=== PATIENT | male | born 2000 | race Caucasian/White ===

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

== ENCOUNTER 2021-09-26 11:19 | Inpatient (IN) | payer OTHER ==
[2021-09-26] MEDS ORDERED: ACETAMINOPHEN 1000 MG/100 ML BAG IVPB ONE (12:32)
[2021-09-26] MEDS ORDERED: ACETAMINOPHEN INJECTION 100 ML IVPB ONE (13:17)
[2021-09-26 14:27] LABS: BASO % 0.7 % (0-2.0); EOS % 5.4 % (0-4.5); HEMATOCRIT 44.4 % (35.4-49); HEMOGLOBIN 14.7 GM/dL (11.7-16.9); LYMPH % 29.6 % (8-40); MCH 27.3 pg (25.7-33.7); MCHC 33.1 g/dl (32.0-35.9); MEAN CELL VOLUME 82.6 fl (80-96); MEAN PLT VOLUME 8.6 fl (7.5-11.1); MONO % 8.1 % (3.8-10.2); NEUT % 56.2 % (42.8-82.8); PLATELET COUNT 249 10^3/uL (134-434); RBC 5.38 M/mm3 (4.00-5.60); RDW 13.7 % (11.9-15.9); WHITE BLOOD COUNT 7.7 K/mm3 (4.0-10.0)
[2021-09-26 14:29] LABS: ALBUMIN 4.2 g/dl (3.4-5.0); BLOOD UREA NITROGEN 14.3 mg/dL (7-18); CALCIUM 9.3 mg/dL (8.5-10.1)
[2021-09-26 14:30] LABS: MAGNESIUM 2.3 mg/dL (1.8-2.4)
[2021-09-26 14:33] LABS: CREATININE 0.9 mg/dL (0.55-1.3)
[2021-09-26 14:34] LABS: BILIRUBIN,TOTAL 0.6 mg/dL (0.2-1); TOT PROT 7.2 g/dl (6.4-8.2)
[2021-09-26 14:36] LABS: INR 1.1 (0.83-1.09); PROTHROMBIN TIME (PATIENT) 12.7 SEC (9.7-13.0)
[2021-09-26 14:39] LABS: ACTIVATED PTT 33.9 SECONDS (25.2-36.5)
[2021-09-26] MEDS ORDERED: ACETAMINOPHEN 325 MG TABLET (FP) PO PRN (16:32)
[2021-09-26] MEDS ORDERED: oxyCODONE HCL 5 MG TABLET PO PRN (19:21)
[2021-09-27] MEDS ORDERED: ALBUTEROL SO4 HFA INHALER IH PRN (07:14)
[2021-09-27 08:13] LABS: HEMATOCRIT 45.4 % (35.4-49); MCH 27.2 pg (25.7-33.7); MEAN CELL VOLUME 82.5 fl (80-96); MEAN PLT VOLUME 8.1 fl (7.5-11.1); PLATELET COUNT 218 10^3/uL (134-434); RDW 13.6 % (11.9-15.9)
[2021-09-27 08:31] LABS: CALCIUM 9.5 mg/dL (8.5-10.1)
[2021-09-27 08:32] LABS: BLOOD UREA NITROGEN 11.7 mg/dL (7-18)
[2021-09-27] MEDS ORDERED: FAMOTIDINE 20 MG TABLET ONE (09:29)
[2021-09-27] MEDS: FAMOTIDINE 20 MG TABLET PO SCH (09:33)
[2021-09-27 12:57] LABS: ANISOCYTOSIS 0; MACROCYTOSIS 0
[2021-09-27] MEDS ORDERED: MELATONIN 5 MG TABLETS PO PRN (14:57)
[2021-09-27] MEDS ORDERED: ONDANSETRON 4 MG/2 ML VIAL IVPUSH PRN (16:32)
[2021-09-27 17:13] VITALS: BMI 21.6
[2021-09-28] MEDS: FAMOTIDINE 20 MG TABLET PO SCH (09:48)
[2021-09-29] MEDS: FAMOTIDINE 20 MG TABLET PO SCH (09:14)
[2021-09-29 09:57] LABS: HEMATOCRIT 45.5 % (35.4-49); HEMOGLOBIN 15.5 GM/dL (11.7-16.9); MCH 27.8 pg (25.7-33.7); MCHC 34.1 g/dl (32.0-35.9); MEAN CELL VOLUME 81.6 fl (80-96); MEAN PLT VOLUME 8.2 fl (7.5-11.1); PLATELET COUNT 243 10^3/uL (134-434); RBC 5.58 M/mm3 (4.00-5.60); RDW 13.5 % (11.9-15.9); WHITE BLOOD COUNT 10.4 K/mm3 (4.0-10.0)
[2021-09-29 10:22] LABS: CALCIUM 9.6 mg/dL (8.5-10.1)
[2021-09-29 10:23] LABS: BLOOD UREA NITROGEN 14.6 mg/dL (7-18)
[2021-09-29 10:25] LABS: CREATININE 1.1 mg/dL (0.55-1.3)
[2021-09-30 08:58] LABS: HEMATOCRIT 45.4 % (35.4-49); HEMOGLOBIN 15.6 GM/dL (11.7-16.9); MCH 27.9 pg (25.7-33.7); MCHC 34.5 g/dl (32.0-35.9); MEAN CELL VOLUME 81.1 fl (80-96); MEAN PLT VOLUME 8.6 fl (7.5-11.1); PLATELET COUNT 251 10^3/uL (134-434); RDW 12.9 % (11.9-15.9); WHITE BLOOD COUNT 10.7 K/mm3 (4.0-10.0)
[2021-09-30 09:20] LABS: CALCIUM 9.7 mg/dL (8.5-10.1)
[2021-09-30 09:24] LABS: CREATININE 1.1 mg/dL (0.55-1.3)
[2021-09-30] MEDS: FAMOTIDINE 20 MG TABLET PO SCH (09:26)
[2021-10-01] MEDS ORDERED: LORazepam 2 MG/ML SDV VIAL IVPUSH ONE ×2 (02:37)
[2021-10-01 09:07] LABS: HEMATOCRIT 44.9 % (35.4-49); HEMOGLOBIN 15.3 GM/dL (11.7-16.9); INR 1.28 (0.83-1.09); MCH 27.7 pg (25.7-33.7); MCHC 34.1 g/dl (32.0-35.9); MEAN CELL VOLUME 81.1 fl (80-96); MEAN PLT VOLUME 8.1 fl (7.5-11.1); PLATELET COUNT 259 10^3/uL (134-434); PROTHROMBIN TIME (PATIENT) 14.7 SEC (9.7-13.0); RBC 5.54 M/mm3 (4.00-5.60)
[2021-10-01 09:10] LABS: ACTIVATED PTT 36.4 SECONDS (25.2-36.5)
[2021-10-01 09:32] LABS: BLOOD UREA NITROGEN 18.5 mg/dL (7-18); CALCIUM 9.5 mg/dL (8.5-10.1)
[2021-10-01] MEDS ORDERED: PROPOFOL 20 ML ONE ×2 (09:46)
[2021-10-01] MEDS ORDERED: ROCURONIUM BROMIDE 50 MG/5 ML SYRINGE ONE ×2 (09:46→12:10)
[2021-10-01] MEDS ORDERED: MIDAZOLAM HCL 2 MG/2 ML SINGLE DOSE VIAL ONE ×2 (09:46)
[2021-10-01] MEDS: FAMOTIDINE 20 MG TABLET PO SCH (10:23)
[2021-10-01] MEDS ORDERED: BUPIVACAINE HCL/PF 0.25% (2.5MG/ML) 10 ML VIAL ONE (11:04)
[2021-10-01] MEDS ORDERED: ceFAZolin SODIUM 1 GM VIAL ONE (12:02)
[2021-10-01] MEDS ORDERED: ceFAZolin SODIUM 1 GM VIAL IVPB ONE (12:02)
[2021-10-01] MEDS ORDERED: BUPIVACAINE HCL/PF 0.25% (2.5MG/ML) 10 ML VIAL IJ ONE (12:03)
[2021-10-01] MEDS ORDERED: ONDANSETRON 4 MG/2 ML VIAL ONE (12:05)
[2021-10-01] MEDS ORDERED: DEXAMETHASONE SOD PHOSPHATE 4 MG/1 ML VIAL ONE (12:05)
[2021-10-01] MEDS ORDERED: NEOSTIGMINE METHYLSULFATE 0.5 MG/1 ML - 10 ML MDV ONE ×2 (12:41→13:14)
[2021-10-01] MEDS ORDERED: GLYCOPYRROLATE 0.2 MG/1 ML VIAL ONE ×2 (13:03→13:15)
[2021-10-01] MEDS ORDERED: ONDANSETRON 4 MG/2 ML VIAL IVPUSH PRN ×3 (13:22→13:53)
[2021-10-01] MEDS ORDERED: ALBUTEROL SO4 HFA INHALER IH PRN (13:22)
[2021-10-01] MEDS ORDERED: FENTANYL CITRATE/PF 50 MCG/ML VIAL ONE ×2 (13:46→14:11)
[2021-10-01] MEDS ORDERED: ACETAMINOPHEN INJECTION 100 ML IVPB ONE (13:49)
[2021-10-01] MEDS ORDERED: ACETAMINOPHEN 1000 MG/100 ML BAG IVPB ONE (13:52)
[2021-10-01] MEDS ORDERED: HYDROmorphone *PCA* 10MG/50ML DISP.SYRIN ONE (14:11)
[2021-10-01] MEDS ORDERED: LACTATED RINGERS SOLUTION 1,000 ML/1,000 ML INFUS.BAG IV SCH (16:30)
[2021-10-01] MEDS: ACETAMINOPHEN 1000 MG/100 ML BAG IVPB SCH ×2 (19:20→20:15)
[2021-10-01] MEDS: HYDROmorphone *PCA* 10MG/50ML DISP.SYRIN PCA SCH (19:20)
[2021-10-01] MEDS: MUPIROCIN 2% TOPICAL OINTMENT FOR DECOLONIZATION NS SCH (21:18)
[2021-10-01] MEDS: CHLORHEXIDINE GLUCONATE 4% CLEANSER FOR DECOLONIZATION TP SCH (21:19)
[2021-10-02] MEDS: ACETAMINOPHEN 1000 MG/100 ML BAG IVPB SCH ×2 (03:22→06:16)
[2021-10-02 07:43] LABS: BASO % 0.2 % (0-2.0); EOS % 1.3 % (0-4.5); HEMOGLOBIN 13.9 GM/dL (11.7-16.9); LYMPH % 6.6 % (8-40); MCH 27.1 pg (25.7-33.7); MCHC 33.1 g/dl (32.0-35.9); MEAN PLT VOLUME 8.6 fl (7.5-11.1); MONO % 12.1 % (3.8-10.2); NEUT % 79.8 % (42.8-82.8); PLATELET COUNT 235 10^3/uL (134-434); RBC 5.12 M/mm3 (4.00-5.60); RDW 13.3 % (11.9-15.9); WHITE BLOOD COUNT 14.3 K/mm3 (4.0-10.0)
[2021-10-02 08:16] LABS: BLOOD UREA NITROGEN 14.1 mg/dL (7-18)
[2021-10-02 08:19] LABS: CREATININE 0.9 mg/dL (0.55-1.3)
[2021-10-02] MEDS: FAMOTIDINE 40 MG TABLET PO SCH (09:24)
[2021-10-02] MEDS: HEPARIN NA (PORCINE) 5,000 UNITS/ML 1ML VIAL SQ SCH ×2 (09:24→21:51)
[2021-10-02] MEDS: MUPIROCIN 2% TOPICAL OINTMENT FOR DECOLONIZATION NS SCH ×2 (09:24→21:52)
[2021-10-02] MEDS: HYDROmorphone *PCA* 10MG/50ML DISP.SYRIN PCA SCH (14:36)
[2021-10-02] MEDS: CHLORHEXIDINE GLUCONATE 4% CLEANSER FOR DECOLONIZATION TP SCH (21:52)
[2021-10-02] MEDS: MELATONIN 5 MG TABLETS PO PRN (21:52)
[2021-10-03 07:39] LABS: HEMATOCRIT 41.5 % (35.4-49); HEMOGLOBIN 13.8 GM/dL (11.7-16.9); MCH 27.4 pg (25.7-33.7); MCHC 33.2 g/dl (32.0-35.9); MEAN CELL VOLUME 82.7 fl (80-96); MEAN PLT VOLUME 8.7 fl (7.5-11.1); PLATELET COUNT 212 10^3/uL (134-434); RBC 5.02 M/mm3 (4.00-5.60); RDW 13.2 % (11.9-15.9)
[2021-10-03 07:56] LABS: BLOOD UREA NITROGEN 8.5 mg/dL (7-18); CALCIUM 9.5 mg/dL (8.5-10.1); MAGNESIUM 1.7 mg/dL (1.8-2.4)
[2021-10-03 07:59] LABS: CREATININE 0.9 mg/dL (0.55-1.3)
[2021-10-03 08:00] LABS: PHOSPHOROUS 2.7 mg/dL (2.5-4.9)
[2021-10-03] MEDS: FAMOTIDINE 40 MG TABLET PO SCH (10:01)
[2021-10-03] MEDS: HEPARIN NA (PORCINE) 5,000 UNITS/ML 1ML VIAL SQ SCH ×2 (10:01→21:19)
[2021-10-03] MEDS: ACETAMINOPHEN 325 MG TABLET (FP) PO PRN ×2 (13:18→21:41)
[2021-10-03] MEDS: oxyCODONE HCL 5 MG TABLET PO PRN ×2 (13:19→21:42)
[2021-10-03] MEDS: GABAPENTIN 300 MG CAPSULE PO SCH ×2 (13:23→21:19)
[2021-10-03] MEDS: MUPIROCIN 2% TOPICAL OINTMENT FOR DECOLONIZATION NS SCH ×2 (13:46→21:20)
[2021-10-03] MEDS: MELATONIN 5 MG TABLETS PO PRN (21:20)
[2021-10-03] MEDS: CHLORHEXIDINE GLUCONATE 4% CLEANSER FOR DECOLONIZATION TP SCH (21:20)
[2021-10-04] MEDS: GABAPENTIN 300 MG CAPSULE PO SCH ×2 (05:10→14:32)
[2021-10-04] MEDS: oxyCODONE HCL 5 MG TABLET PO PRN ×2 (05:58→12:31)
[2021-10-04] MEDS ORDERED: MAGNESIUM OXIDE 400 MG TABLET (FP) PO ONE (07:21)
[2021-10-04 08:03] LABS: BASO % 0.3 % (0-2.0); EOS % 4.3 % (0-4.5); HEMATOCRIT 39.8 % (35.4-49); HEMOGLOBIN 13.4 GM/dL (11.7-16.9); LYMPH % 17.9 % (8-40); MCH 27.7 pg (25.7-33.7); MCHC 33.7 g/dl (32.0-35.9); MEAN CELL VOLUME 82.3 fl (80-96); MEAN PLT VOLUME 8.1 fl (7.5-11.1); NEUT % 65.5 % (42.8-82.8); PLATELET COUNT 234 10^3/uL (134-434); RBC 4.84 M/mm3 (4.00-5.60); RDW 13.2 % (11.9-15.9); WHITE BLOOD COUNT 9.4 K/mm3 (4.0-10.0)
[2021-10-04 08:40] LABS: CALCIUM 9.1 mg/dL (8.5-10.1)
[2021-10-04 08:41] LABS: BILIRUBIN,TOTAL 0.6 mg/dL (0.2-1); PHOSPHOROUS 3.2 mg/dL (2.5-4.9); TOT PROT 6.2 g/dl (6.4-8.2)
[2021-10-04 08:42] LABS: BLOOD UREA NITROGEN 8.9 mg/dL (7-18)
[2021-10-04 08:43] LABS: MAGNESIUM 1.8 mg/dL (1.8-2.4)
[2021-10-04 08:44] LABS: CREATININE 0.8 mg/dL (0.55-1.3)
[2021-10-04] MEDS: HEPARIN NA (PORCINE) 5,000 UNITS/ML 1ML VIAL SQ SCH (09:24)
[2021-10-04] MEDS: MUPIROCIN 2% TOPICAL OINTMENT FOR DECOLONIZATION NS SCH (09:24)
[2021-10-04] MEDS: FAMOTIDINE 40 MG TABLET PO SCH (11:00)
[2021-10-04 15:12] VITALS: TEMP 98.6
[2021-10-04 15:13] VITALS: BP 98/61; PULSE 81
== END 2021-10-04 15:40 | disposition home or self-care (01) | DRG 120 ==
LOC: JER 11:19 → JERBED 14:39 → J5S 09-27 11:33 → JICU 10-01 14:53
PROVIDERS: ADMIT Internal Medicine; ATTEND Internal Medicine
PROC: 3E0L4GC Introduction of Other Therapeutic Substance into Pleural Cavity, Percutaneous Endoscopic Approach (ICD-10-PCS; 2021-10-01)
PROC: 0BTG4ZZ Resection of Left Upper Lung Lobe, Percutaneous Endoscopic Approach (ICD-10-PCS; 2021-10-01)
PROC: 0W9B30Z Drainage of Left Pleural Cavity with Drainage Device, Percutaneous Approach (ICD-10-PCS; principal; 2021-10-01 11:00)
DX: J93.83 Other pneumothorax (principal); I10 Essential (primary) hypertension; E78.5 Hyperlipidemia, unspecified; F12.90 Cannabis use, unspecified, uncomplicated; J43.9 Emphysema, unspecified; R00.1 Bradycardia, unspecified; I45.10 Unspecified right bundle-branch block; J45.909 Unspecified asthma, uncomplicated; R07.81 Pleurodynia
CPT/HCPCS: 36415; 71045-TC-FY; 71046-TC-FY; 71250-TC; 80048; 80053; 83735; 84100; 85025; 85027; 85610; 85730; 86850; 86900; 86901; 88307-TC; 93005; 93010; 94760; 99285-25; C9803-CS; J1644; U0003; U0005

== ENCOUNTER 2022-03-03 13:35 | Emergency (ER) | payer OTHER ==
[2022-03-03 14:09] VITALS: BP 107/65; PULSE 88; RESP 18; TEMP 99.4; BMI 28.5
== END 2022-03-03 18:34 | disposition home or self-care (01) ==
LOC: JER 13:35
DX: J06.9 Acute upper respiratory infection, unspecified (principal)
CPT/HCPCS: 0241U-QW; 99283-25

== ENCOUNTER 2022-05-14 00:30 | Emergency (ER) | payer OTHER ==
[2022-05-14 00:50] VITALS: BMI 26.4
[2022-05-14 03:29] VITALS: BP 108/60; PULSE 88; RESP 20; TEMP 97.8
[2022-05-14] MEDS ORDERED: KETOROLAC TROMETHAMINE 30 MG/1 ML VIAL IM ONE (03:39)
[2022-05-14] MEDS ORDERED: KETOROLAC TROMETHAMINE 30 MG/1 ML VIAL ONE (03:50)
== END 2022-05-14 04:05 | disposition home or self-care (01) ==
LOC: JER 00:30
PROC: 3E023GC Introduction of Other Therapeutic Substance into Muscle, Percutaneous Approach (ICD-10-PCS; principal; 2022-05-14)
DX: R07.89 Other chest pain (principal)
CPT/HCPCS: 71046-TC-FY; 93005; 93010; 99284-25

== ENCOUNTER 2022-05-15 15:06 | Emergency (ER) | payer OTHER ==
[2022-05-15 15:11] VITALS: BP 134/69; PULSE 69; RESP 18; BMI 25.7
[2022-05-15 15:32] VITALS: TEMP 97.9
[2022-05-15 17:16] LABS: SYPHILIS W/ RPR CONF NON-REACTIVE (NONREACTIVE)
[2022-05-16 15:33] LABS: HIV INTERPRETATION NEGATIVE (NEGATIVE)
== END 2022-05-15 16:10 | disposition home or self-care (01) ==
LOC: JER 15:06 → JERFT 15:06
DX: Z11.3 Encounter for screening for infections with a predominantly sexual mode of transmission (principal)
CPT/HCPCS: 36415; 86780; 87389; 87491; 87591; 99283-25

== ENCOUNTER 2022-12-14 01:52 | Emergency (ER) | payer OTHER ==
[2022-12-14 02:14] VITALS: BP 115/73; PULSE 100; RESP 18; TEMP 98.1; BMI 25.7
== END 2022-12-14 06:35 | disposition home or self-care (01) ==
LOC: JER 01:52
DX: R06.02 Shortness of breath (principal); K21.9 Gastro-esophageal reflux disease without esophagitis; L02.412 Cutaneous abscess of left axilla; R12 Heartburn
CPT/HCPCS: 71046-TC-FY; 99283-25

== ENCOUNTER 2023-05-03 21:38 | Emergency (ER) | payer OTHER ==
[2023-05-03 21:45] VITALS: BP 107/63; PULSE 61; RESP 17; TEMP 98.3; BMI 28.5
[2023-05-03] MEDS ORDERED: FAMOTIDINE 20 MG TABLET PO ONE (22:30)
[2023-05-03] MEDS ORDERED: KETOROLAC TROMETHAMINE 15 MG/ML VIAL IVPUSH ONE (22:30)
[2023-05-03] MEDS ORDERED: MAG HYDROX/AL HYDROX/SIMETH -MYLANTA- ORAL SUSPENSION PO ONE (22:31)
[2023-05-03] MEDS ORDERED: KETOROLAC TROMETHAMINE 15 MG/ML VIAL IM ONE (22:33)
[2023-05-03] MEDS ORDERED: KETOROLAC TROMETHAMINE 15 MG/ML VIAL ONE (22:34)
[2023-05-03] MEDS ORDERED: FAMOTIDINE 20 MG TABLET ONE (22:34)
[2023-05-03] MEDS ORDERED: MAG HYDROX/AL HYDROX/SIMETH 30 ML UNIT-DOSE CUP ONE (22:34)
== END 2023-05-04 00:27 | disposition home or self-care (01) ==
LOC: JER 21:38
PROC: 3E0233Z Introduction of Anti-inflammatory into Muscle, Percutaneous Approach (ICD-10-PCS; principal; 2023-05-03)
DX: R07.89 Other chest pain (principal); R10.13 Epigastric pain
CPT/HCPCS: 71046-TC-FY; 93005; 93010; 99284-25

== ENCOUNTER 2023-11-14 03:59 | Emergency (ER) | payer OTHER ==
[2023-11-14 04:10] VITALS: BP 122/86; PULSE 115; RESP 18; TEMP 97.8; BMI 31.5
[2023-11-14] MEDS ORDERED: DIPHTH,PERTUSS(ACELL),TET 0.5 ML DISP.SYRIN IM ONE (04:26)
[2023-11-14] MEDS ORDERED: ACETAMINOPHEN 325 MG TABLET (FP) ONE (04:26)
[2023-11-14] MEDS ORDERED: ONDANSETRON *ODT* 4 MG TABLET ONE (04:26)
[2023-11-14] MEDS: DIPHTH,PERTUSS(ACELL),TET 0.5 ML DISP.SYRIN IM ONE (04:30)
[2023-11-14] MEDS: ONDANSETRON *ODT* 4 MG TABLET SL ONE (04:30)
[2023-11-14] MEDS: ACETAMINOPHEN 325 MG TABLET (FP) PO ONE (04:31)
== END 2023-11-14 06:28 | disposition home or self-care (01) ==
LOC: JER 03:59
PROC: 0HQ1XZZ Repair Face Skin, External Approach (ICD-10-PCS; principal; 2023-11-14)
PROC: 3E0234Z Introduction of Serum, Toxoid and Vaccine into Muscle, Percutaneous Approach (ICD-10-PCS; 2023-11-14)
DX: S01.412A Laceration without foreign body of left cheek and temporomandibular area, initial encounter (principal); R00.0 Tachycardia, unspecified; W17.81XA Fall down embankment (hill), initial encounter; Z23 Encounter for immunization
CPT/HCPCS: 12011-25; 70450-TC; 72125-TC; 90471; 90715; 99284-25; Q0162